=== PATIENT | female | born 1955 ===

== ENCOUNTER 2021-06-20 06:00 | Day surgery (SDC) | payer OTHER ==
[~2021-06-20 06:00] MED LIST: ACID REDUCER20 M1 PO; CARVEDILOL6.25 M1 PO; CRESTOR10 MG PO; PEPCID AC20 MG PO; SINGULAIR10 MG PO; VITAMIN D PO; XANAX2 MG PO
[2021-06-20] MEDS ORDERED: ULTRACET PO (09:22)
== END 2021-06-20 11:15 | disposition home or self-care (01) ==
LOC: CIR.AMB 06:00
PROVIDERS: ATTEND Surgery
DX: R15.9 Full incontinence of feces (principal); Z46.2 Encounter for fitting and adjustment of other devices related to nervous system and special senses; R19.4 Change in bowel habit; Z88.6 Allergy status to analgesic agent; I10 Essential (primary) hypertension; I25.2 Old myocardial infarction; J45.909 Unspecified asthma, uncomplicated; M19.90 Unspecified osteoarthritis, unspecified site; M79.7 Fibromyalgia; Z20.822 Contact with and (suspected) exposure to COVID-19
CPT/HCPCS: 64581; 64590; 95972; C1778; L8679